=== PATIENT | female | born 1985 | race Caucasian/White ===

== ENCOUNTER 2022-10-27 09:56 | Inpatient (IN) | payer BC ==
[2022-10-25 13:23] VITALS: BMI 39.9
[2022-10-27] MEDS ORDERED: OXYTOCIN 10 UNIT/ML 1 ML VIAL IM PRN (10:03)
[2022-10-27] MEDS ORDERED: miSOPROStoL 200 MCG TAB PO PRN (10:03)
[2022-10-27] MEDS ORDERED: METHYLERGONOVINE 0.2 MG/ML 1 ML AMP IM PRN (10:03)
[2022-10-27] MEDS ORDERED: TRANEXAMIC 1,000 MG/100ML-NACL 1,000 MG in EMPTY BAG 1 BAG IV PRN (10:03)
[2022-10-27] MEDS ORDERED: CARBOPROST TROMETHAMINE 250 MCG/ML 1 ML AMP IM PRN (10:03)
[2022-10-27] MEDS ORDERED: CITRIC ACID-SODIUM CITRATE 15 ML CUP PO ONE (10:06)
[2022-10-27] MEDS ORDERED: OXYTOCIN 30 UNITS/500 ML NS 30 UNIT in SALINE 1 500ML.BAG IV SCH (10:15)
[2022-10-27] MEDS ORDERED: LACTATED RINGERS 1,000 ML IV SCH (10:15)
[2022-10-27 10:26] LABS: Glucose,Whole Blood 85 mg/dL (70-110)
[2022-10-27] MEDS: LACTATED RINGERS 1,000 ML IV SCH ×5 (10:30→23:37)
[2022-10-27 10:39] LABS: Basophils % (A) 0 %; Eosinophils # (A) 0.1 k/uL (0-0.7); Eosinophils % (A) 1 %; HCT 35.8 % (34.0-46.0); HGB 12.2 gm/dL (11.4-16.0); Lymphocytes # (A) 1.5 k/uL (1.0-4.8); Lymphocytes % (A) 19 %; MCH 28.2 pg (25.0-35.0); MCHC 33.9 g/dL (31.0-37.0); Mean Platelet Volume 8.8; Monocytes # (A) 0.4 k/uL (0-1.0); Monocytes % (A) 4 %; Neutrophils # (A) 6.1 k/uL (1.3-7.7); Neutrophils % (A) 73 %; Platelet Count 214 k/uL (150-450); RBC 4.32 m/uL (3.80-5.40); RDW 13.9 % (11.5-15.5); WBC 8.2 k/uL (3.8-10.6)
--- NOTE | 2022-10-27 11:28 | P.HPOB ---
History of Present Illness H&P Date: 10/27/22 Chief Complaint: Scheduled Repeat Section Ms. Regalado is a 37 year old at 37 weeks and 2 days gestation with EDC of 11/15/2022 (by LMP consistent with 9 week US) who presents to labor and delivery for scheduled repeat section for gestational hypertension, gestational diabetes on insulin, and symmetric intrauterine growth restriction with estimated weight in the 4.8%ile on 10/26/2022. On ultrasound yesterday, the fetus has a biophysical profile of 8/8, normal LOUISA, and normal umbilical artery cord dopplers. Obstetric history: The patient has 1 full-term section after failure to progress during medical induction of labor for gestational hypertension. Maternal workup: blood type B positive, antibody screen negative, rubella immune, VDRL non-reactive, HBsAg negative, HIV negative, gonorrhea negative, chlamydia negative, GBS negative. Past Medical History Past Medical History: Diabetes Mellitus, Hyperlipidemia, Hypertension Additional Past Medical History / Comment(s): High blood pressure and Gestational Diabtetes with this . History of Any Multi-Drug Resistant Organisms: None Reported Past Surgical History: Section Past Anesthesia/Blood Transfusion Reactions: Motion Sickness Past Psychological History: No Psychological Hx Reported Smoking Status: Never smoker Past Alcohol Use History: Occasional Additional Past Alcohol Use History / Comment(s): Occasional alcohol use prior to . Past Drug Use History: None Reported - Past Family History Mother Family Medical History: No Reported History Medications and Allergies Home Medications Medication Instructions Recorded Confirmed Type Insulin NPH Hum/Reg Insulin Hm 20 units SQ HS 10/25/22 10/27/22 History [Novolin 70-30 100 Unit/ml Vial] Magnesium 250 mg PO HS 10/25/22 10/27/22 History Vit No.179/Iron/Folic 1 each PO DAILY 10/25/22 10/27/22 History [ Tablet] Allergies Allergy/AdvReac Type Severity Reaction Status Date / Time No Known Allergies Allergy Verified 10/27/22 10:02 Exam Vital Signs Temp Pulse Resp BP Pulse Ox 10/27/22 10:02 97.7 F 84 16 119/62 100 Intake and Output 10/26/22 10/27/22 10/27/22 22:59 06:59 14:59 Other: Weight 95.708 kg Focused physical exam is performed. This is a healthy-appearing in no apparent distress. Abdomen is gravid and nontender. Cervical exam is deferred. Extremities are non-tender, non-edematous. Fetus has reactive and reassuring heart tones on NST. Results Result Diagrams: 10/27/22 10:05 Assessment and Plan Assessment: 37 year old at 37 weeks and 2 days presenting for scheduled repeat section for gestational hypertension, diabetes mellitus on insulin, and symmetric intrauterine growth restriction in the 4.8%ile with normal umbilical cord dopplers. Plan: Admit, NPO, mIVF, IV Ancef for surgical prophylaxis. Continuous EFM until c- section. Close monitoring of patient. Time with Patient: Less than 30 (10 minutes)
[2022-10-27] MEDS ORDERED: fentaNYL (PF) 50 MCG/ML 2 ML AMP ONE (12:24)
[2022-10-27] MEDS ORDERED: KETOROLAC 15 MG/ML 1 ML VIAL ONE (12:24)
[2022-10-27] MEDS ORDERED: ONDANSETRON 4 MG/2 ML VIAL ONE (12:24)
[2022-10-27] MEDS ORDERED: OXYTOCIN 30 UNITS/500 ML NS BAG IV ONE (12:24)
[2022-10-27] MEDS ORDERED: MORPHINE SULFATE (PF) 0.3 MG/0.3 ML SYR ONE (12:24)
[2022-10-27] MEDS ORDERED: ONDANSETRON 4 MG/2 ML VIAL IVP PRN (13:16)
[2022-10-27] MEDS ORDERED: diphenhydrAMINE 25 MG CAP PO PRN (13:16)
[2022-10-27] MEDS ORDERED: ZOLPIDEM 5 MG TAB PO PRN (13:16)
[2022-10-27] MEDS ORDERED: diphenhydrAMINE 50 MG CAP PO PRN (13:16)
[2022-10-27] MEDS ORDERED: METOCLOPRAMIDE 5 MG/ML 2 ML VIAL IVP PRN (13:16)
[2022-10-27] MEDS ORDERED: diphenhydrAMINE 50 MG/ML 1 ML VIAL IVP PRN ×2 (13:16)
[2022-10-27] MEDS ORDERED: NALOXONE 0.4 MG/ML 1 ML VIAL IV PRN (13:16)
--- NOTE | 2022-10-27 13:26 | P.OP ---
Date of Procedure: 10/27/22 Preoperative Diagnosis: 1. Term IUP at 37 weeks and 2 days 2. Gestational Hypertension 3. Gestational Diabetes on Insulin 4. Symmetrical Intrauterine Growth Restriction in the 4%ile 5. Normal umbilical cord dopplers 6. Prior Section with no desires to TOLAC Postoperative Diagnosis: Same Procedure(s) Performed: Repeat Lower Transverse Section Implants: None Anesthesia: spinal Surgeon: Es Arenas [employer] Operator #1: Donovan Sheets Estimated Blood Loss (ml): 292 IV fluids (ml): 1,000 Urine output (ml): 500 (clear yellow) Pathology: other (placenta sent to pathology) Condition: stable Disposition: floor Indications for Procedure: This is a 37 year old at 37 weeks and 2 days being delivered by repeat section for gestational hypertension, gestational diabetes on insulin, and newly diagnosis intrauterine growth restriction in the 4%ile with normal umbilical cord dopplers. The patient has a history of a prior section and has no desires for trial of labor after section. Delivery by section was recommended for maternal and well-being. Risks of surgery were discussed including risk of bleeding, infection, damage to surrounding structures including bladder/bowels/ureters, and risk of postoperative VTE. The patient understands these risks and desires to proceed. Operative Findings: Viable female delivered in right occiput transverse presentation with Apgars 8/9 at 1 and 5 minutes respectively. Colorless amniotic fluid was noted at delivery. Weight 5 pounds, 7 ounces. Normal uterus, bilateral fallopian tubes, and ovaries. Description of Procedure: The patient was taken to the operating room where spinal anesthesia was found to be adequate. 2 grams of Ancef were given for infection prophylaxis. She was prepared and draped in the dorsal supine position with a leftward tilt. A Pfannenstiel skin incision was made with the scalpel. The incision was carried down to the fascia. The fascia was incised and extended laterally with Alexander scissors. The superior aspect of the fascia was grasped with Luann clamps. The underlying rectus muscle was dissected off sharply with Alexander scissors. In a similar fashion, the inferior aspect of the fascia was elevated with Luann clamps and the rectus muscle and pyramidalis were dissected off. Excellent hemostasis was achieved with the bovie. The rectus muscle was in the midline down to the level of the pubic symphysis. Pre-peritoneal fatty tissue was bluntly dissected to expose the peritoneum. The peritoneum was found to be free of adherent bowel and entered sharply with Alexander scissors. The peritoneal incision was extended superiorly and inferiorly to the bladder reflection with good visualization of the bladder. The bladder blade was inserted and vesicouterine peritoneum was identified. Intraabdominal survey revealed scant, clear peritoneal fluid and the thinned-out lower uterine segment. The vesicouterine peritoneum was opened with scissors and the bladder flap was developed. The bladder blade was repositioned to keep the bladder out of the operative field. The lower uterine segment was incised with a scalpel. The amniotic sac was ruptured with an Allis clamp and clear fluid was noted. The uterine incision was extended bluntly with lateral and upward traction. The f etus was in right occiput transverse position. The head was elevated out of the pelvis with special attention paid to avoid using the uterine incision as a fulcrum. Gentle fundal pressure was applied once the head was brought into the incision. After difficulty palpating the buttocks to supply fundal pressure for delivery of the head, the decision was made to use a vacuum on the head to assist with delivery. The vacuum was placed and the correct placement in front of the posterior fontanelle was confirmed digitally. After delivery of the head the vacuum was released and removed. One nuchal cord was reduced. The infant body was then delivered without difficulty. The mouth and nose were suctioned with a bulb. The cord was clamped and cut. The was handed off to the manager manufacturing. IV oxytocin was initiated to facilitate uterine contractions. The placenta was delivered intact with manual massage of uterine fundus. The uterus was then exteriorized and the inside of the uterus was gently wiped with a lap sponge to assure complete removal of placental membranes. The uterine incision was closed with a 0-Polysorb suture in a running locked fashion. A second imbricating layer with 0-Polysorb was placed along the incision. The ovaries and tubes were found to be normal. The uterus, tubes, and ovaries were then gently returned to the abdominal cavity. The blood clots and fluid were wiped out of the abdomen and pelvis with moist laparotomy sponges. The uterine incision was reinspected and excellent hemostasis was noted. The fascial layer was closed with a 0-Vicryl suture. The subcutaneous layer was reapproximated with 2-0 Plain Gut. The skin was closed with 4-0 Monocryl in a subcuticular fashion. The patient tolerated the procedure well. All the counts were correct times two. The patient was taken to the recovery room in a stable condition.
[2022-10-27] MEDS: ACETAMINOPHEN TAB 500 MG TAB PO SCH ×2 (17:56→23:36)
[2022-10-27] MEDS: KETOROLAC 15 MG/ML 1 ML VIAL IVP SCH (19:32)
[2022-10-27] MEDS: SENNOSIDES-DOCUSATE SODIUM 1 EACH TAB PO SCH (19:32)
[2022-10-28] MEDS: KETOROLAC 15 MG/ML 1 ML VIAL IVP SCH ×2 (02:41→10:20)
[2022-10-28 06:37] LABS: Basophils % (A) 0 %; Eosinophils # (A) 0.1 k/uL (0-0.7); Eosinophils % (A) 1 %; HCT 37.2 % (34.0-46.0); HGB 12.2 gm/dL (11.4-16.0); Lymphocytes # (A) 1.9 k/uL (1.0-4.8); Lymphocytes % (A) 19 %; MCH 27.9 pg (25.0-35.0); MCHC 32.8 g/dL (31.0-37.0); Mean Platelet Volume 8.4; Monocytes # (A) 0.4 k/uL (0-1.0); Monocytes % (A) 4 %; Neutrophils % (A) 72 %; Platelet Count 223 k/uL (150-450); RBC 4.37 m/uL (3.80-5.40); RDW 13.8 % (11.5-15.5); WBC 9.7 k/uL (3.8-10.6)
[2022-10-28] MEDS: ACETAMINOPHEN TAB 500 MG TAB PO SCH ×4 (08:09→22:03)
[2022-10-28] MEDS: SENNOSIDES-DOCUSATE SODIUM 1 EACH TAB PO SCH ×2 (08:15→19:31)
--- NOTE | 2022-10-28 09:13 | P.PNOBGPC ---
Subjective - Subjective Principal diagnosis: s/p repeat section Interval history: The patient is doing well this morning and had no acute events overnight. She has no complaints this morning. She reports minimal lochia, passing flatus, voiding without difficulty, ambulating, and eating/drinking without nausea or vomiting. She is her without difficulty. She denies chest pain, shortness of breathing, fevers, or chills overnight. She denies pain or swelling in the legs. Patient reports: Reports appetite normal, Reports voiding normally, Reports pain well controlled, Reports ambulating normally [place]: doing well Objective - Vital Signs Latest vital signs: Vital Signs Temp Pulse Pulse Resp BP Pulse Ox 10/28/22 04:00 98.3 F 69 16 97/64 95 10/27/22 23:40 73 18 111/67 95 10/27/22 20:00 98.2 F 74 16 116/70 97 10/27/22 16:00 75 16 90/52 10/27/22 15:19 97.8 F 76 18 112/59 100 10/27/22 14:49 79 18 103/59 10/27/22 14:19 75 16 95/55 100 10/27/22 14:04 79 18 113/64 100 10/27/22 13:49 80 16 110/53 100 10/27/22 13:34 78 16 102/54 100 10/27/22 13:19 97.1 F L 76 16 100/62 100 10/27/22 10:02 97.7 F 84 16 119/62 100 Intake and Output 10/27/22 10/28/22 10/28/22 22:59 06:59 14:59 Intake Total 425 540 Output Total 678 Balance -253 540 Intake: IV 425 Oral 540 Output: Urine 600 Uretheral (Cardenas) 600 Output, Quantitative 78 Blood Loss Other: Voiding Method Indwelling Catheter - Exam Extremities: Present: normal Abdomen: Present: normal appearance, soft Incision: Present: normal, dry, intact Uterus: Present: normal, firm Assessment and Plan Assessment: 37 year old now POD#1 s/p repeat section at 37 weeks and 2 days 2/2 gestational hypertension, insulin-controlled gestational diabetes, and symmetric intrauterine growth restriction Plan: 1. Postoperative. Patient doing well and meeting all milestones appropriately. 2. Viable female infant. Doing well at the bedside, well. Dispo: Anticipate discharge home tomorrow.
[2022-10-28] MEDS: LACTATED RINGERS 1,000 ML IV SCH ×2 (10:19→10:20)
--- NOTE | 2022-10-28 10:33 | P.PN ---
Progress Note - Text Progress Note Date: 10/28/22 (5044) Anesthesia Postop day 1 Subjective: Status Post section with Duramorph. Patient seen and examined. Doing well without complaint. VAS 2/10. No nausea or vomiting. Mild pruritus tolerable.. Afebrile. Gross lower extremity strength intact. . Without apparent anesthetic complications. Objective: Vital signs reviewed Heart: Regular Rate Lungs: Good chest excursion Abdomen: Appears nondistended Assessment: Status post with Duramorph postop day 1 Plan: Continue current care with your medical management. Anticipated and the Duramorph section around time today. You may see increased pain needs around this time.
[2022-10-28] MEDS ORDERED: KETOROLAC 15 MG/ML 1 ML VIAL IVP STA (11:32)
[2022-10-28] MEDS: IBUPROFEN 600 MG TAB PO SCH ×2 (13:04→19:31)
[2022-10-28] MEDS ORDERED: ONDANSETRON 4 MG TAB PO PRN (16:21)
[2022-10-28] MEDS: SIMETHICONE 80 MG CHEWABLE PO PRN (22:02)
[2022-10-29] MEDS: IBUPROFEN 600 MG TAB PO SCH ×4 (01:40→21:56)
[2022-10-29] MEDS: ACETAMINOPHEN TAB 500 MG TAB PO SCH ×3 (04:29→18:50)
--- NOTE | 2022-10-29 07:30 | P.PNOBGPC ---
Subjective - Subjective Principal diagnosis: s/p repeat section Interval history: The patient is doing well this morning and had no acute events overnight. She has no complaints this morning. She reports minimal lochia, passing flatus, voiding without difficulty, ambulating, and eating/drinking without nausea or vomiting. She is her without difficulty. She denies chest pain, shortness of breathing, fevers, or chills overnight. She denies pain or swelling in the legs. Patient reports: Reports appetite normal, Reports voiding normally, Reports pain well controlled, Reports ambulating normally [employer]: doing well, nursing well Objective - Vital Signs Latest vital signs: Vital Signs Temp Pulse Resp BP Pulse Ox 10/28/22 23:54 98.1 F 71 19 113/72 95 10/28/22 23:53 80 16 10/28/22 16:00 98.3 F 80 16 119/72 97 10/28/22 12:00 98.2 F 76 16 112/68 96 10/28/22 08:00 98.5 F 72 16 124/74 97 Intake and Output 10/28/22 10/29/22 10/29/22 22:59 06:59 14:59 Intake Total 540 Balance 540 Intake: Oral 540 Other: Voiding Method Indwelling Catheter # Voids 2 2 - Exam Extremities: Present: normal Abdomen: Present: normal appearance, soft Incision: Present: normal, dry, intact Uterus: Present: normal, firm Assessment and Plan Assessment: 37 year old now POD#2 s/p repeat section at 37 weeks and 2 days 2/2 gestational hypertension, insulin-controlled gestational diabetes, and symmetric intrauterine growth restriction Plan: 1. Postoperative. Patient doing well and meeting all milestones appropriately. 2. Gestational HTN. BPs have been normotensive since delivery. Continue to monitor. 3. A2GDM. Recommend 2 hour GTT 6 weeks . 4. Viable female infant. Doing well at the bedside, well. Dispo: Anticipate discharge home tomorrow.
[2022-10-29] MEDS: SENNOSIDES-DOCUSATE SODIUM 1 EACH TAB PO SCH ×2 (08:24→21:56)
[2022-10-29] MEDS: SIMETHICONE 80 MG CHEWABLE PO PRN ×2 (11:31→18:55)
[2022-10-30] MEDS: ACETAMINOPHEN TAB 500 MG TAB PO SCH ×3 (00:39→12:34)
[2022-10-30] MEDS: IBUPROFEN 600 MG TAB PO SCH ×2 (04:16→09:22)
[2022-10-30] MEDS: SENNOSIDES-DOCUSATE SODIUM 1 EACH TAB PO SCH (09:22)
[2022-10-30 10:23] VITALS: BP 122/76; PULSE 86; RESP 16; TEMP 98.4
--- NOTE | 2022-10-30 11:17 | P.DS ---
Providers Date of admission: 10/27/22 09:56 Expected date of discharge: 10/30/22 Attending physician: Es Arenas MD Primary care physician: Stated None - Discharge Diagnosis(es) (1) Status post section Current Visit: Yes Status: Acute Hospital Course: The patient is a 37-year-old 2 para 1001 is admitted 37 weeks and 2 days established by last menstrual period and confirmed by 9 week ultrasound which she presented to labor and delivery for scheduled repeat pain section secondary to gestational hypertension, gestational diabetes requiring insulin, and a known diagnosis of intrauterine growth restriction with weight and the 4.8 percentile testing has been reassuring throughout including amniotic fluid index, biophysical profiles, and umbilical artery Dopplers. On labor and delivery, all signs reassuring. She was taken the operating room where she underwent repeat low transverse section and uncomplicated fashion and was delivered of a viable 5 lbs. 7 oz. baby girl with Apgars of 8 at 1 minute and 9 at 5 minutes. Her course was unremarkable with vital signs remained stable and her temperature was afebrile throughout. She was deemed stable for discharge on postoperative day #3 and was discharged home to follow- up in the office in 2 weeks for an incision check and 6 weeks routinely. Discharge instructions included calling for any significantly increased bleeding or foul-smelling lochia, significantly increased fever abdominal pain, perineal complaints, breast complaints, incisional complaints, or anything else that concerned her. She was additionally instructed to have nothing in the vagina for at least 6 weeks time to include intercourse and to abstain from any heavy lifting over the same period of time. She was lastly instructed to do no driving until off of all pain medications or 2 weeks' time, whichever came first. She understood her instructions and agrees to follow up as noted above. Discharge medications included continued vitamins as she has opted to breast-feed. She is additionally to take any other normal home medications. She was to use [id number] analgesic pain medications but was also given a prescription for Nowata 5/325 mg, 1-2 by mouth every 6 hours when necessary pain, #20 dispensed with no refills. Maternal blood type is B+ and rubella status is immune. Discharge hemoglobin and hematocrit were 12.2 and 37.2 respectively. Procedures: #1. Repeat low transverse section Patient Condition at Discharge: Stable Plan - Discharge Summary Discharge Rx Participant: Yes New Discharge Prescriptions: No Action Vit No.179/Iron/Folic [ Tablet] 1 each PO DAILY Magnesium 250 mg PO HS Insulin NPH Hum/Reg Insulin Hm [Novolin 70-30 100 Unit/ml Vial] 20 units SQ HS Discharge Medication List Insulin NPH Hum/Reg Insulin Hm [Novolin 70-30 100 Unit/ml Vial] 20 units SQ HS 10/25/22 [History] Magnesium 250 mg PO HS 10/25/22 [History] Vit No.179/Iron/Folic [ Tablet] 1 each PO DAILY 10/25/22 [History] Follow up Appointment(s)/Referral(s): Es Arenas MD [STAFF PHYSICIAN] - 2 Weeks Discharge Disposition: HOME SELF-CARE
== END 2022-10-30 12:45 | disposition home or self-care (01) | DRG 788 ==
LOC: 4FBP 09:56 → MERGE 12:00 → 4FBP 10-28 03:25
PROVIDERS: ADMIT Obstetrics & Gynecology; ATTEND Obstetrics & Gynecology
PROC: 10D00Z1 Extraction of Products of Conception, Low, Open Approach (ICD-10-PCS; principal; 2022-10-27 12:00)
DX: O13.4 Gestational [pregnancy-induced] hypertension without significant proteinuria, complicating childbirth (principal); O24.424 Gestational diabetes mellitus in childbirth, insulin controlled; E78.5 Hyperlipidemia, unspecified; O99.284 Endocrine, nutritional and metabolic diseases complicating childbirth; O34.211 Maternal care for low transverse scar from previous cesarean delivery; O36.5930 Maternal care for other known or suspected poor fetal growth, third trimester, not applicable or unspecified; Z37.0 Single live birth; Z3A.37 37 weeks gestation of pregnancy; O99.73 Diseases of the skin and subcutaneous tissue complicating the puerperium; L29.9 Pruritus, unspecified; Z79.4 Long term (current) use of insulin; Z79.899 Other long term (current) drug therapy
CPT/HCPCS: 85025; 86850; 86900; 86901; 88307

== ENCOUNTER → 2023-11-28 | Outpatient (CLI) | payer BC | END | disposition home or self-care (01) | LOC: LABPRL 08:45 | PROVIDERS: ATTEND Family Medicine | DX: E28.2 Polycystic ovarian syndrome (principal); R63.5 Abnormal weight gain; Z68.27 Body mass index [BMI] 27.0-27.9, adult | CPT/HCPCS: 80053; 80061; 83036; 84443 ==